=== PATIENT | female | born 1955 | race Caucasian/White ===

== ENCOUNTER → 2017-04-26 | Day surgery (SDC) | payer MEDICARE, MEDICAID ==
[~2017-04-26] VITALS: Ht 162.6 cm; Wt 81.6 kg
[~2017-04-26] MED LIST: BUSPIRONE HCL10 MG PO; CARVEDILOL6.25 MG PO; CYMBALTA30 MG PO; DICLOFENAC 50MG50 MG PO; LISINOPRIL40 MG PO; METOPROLOL SUCC25 M2 PO; NORVASC 10MG. T10 MG PO; OMEPRAZOLE20 MG PO; PERCOCET 325 MG1 TA4 PO; PERCOCET 5/3251 EACH PO; PERCOCET1 TAB PO; PRAVACHOL20 MG PO; ZANAFLEX4 M3 PO
[2017-04-26 13:01] VITALS: BP 189/97
[2017-04-26 13:24] VITALS: BP 189/97
[2017-04-26 13:25] VITALS: BP 156/85
[2017-04-26 13:36] VITALS: BP 151/83
--- NOTE | 2017-04-26 13:37 | Procedure Note ---
Procedure detail Date of procedure: 04/26/17 Anesthesiologist: Tyrone Bagley Complications: None Pre-procedure diagnosis: Degenerative disease cervical spine multiple levels cervical radiculopathy symptoms. Cervical postlaminectomy syndrome. Cervical facet arthropathy multiple level. Post-procedure diagnosis: Same Indications for procedure: Very pleasant 62-year-old white female has had extensive posterior cervical fusion in the past. She has extreme point tenderness on the LEFT side of her cervical spine. Pain intensifies with LEFT rotation. Flexion and/or extension. She presents to our clinic today for cervical medial branch block C5-6, C6-7, C7 -T1 on the LEFT. Procedure detail: Informed consent was obtained and the risk and benefits of the procedure was explained to the patient. Patient was taken to the procedure room where noninvasive monitors were placed, including noninvasive blood pressure cuff as well as pulse oximeter. The area over the lumbar spine was cleansed using chlorhexidine as a cleansing solution. I anesthetized the skin and subcutaneous tissues with 1% Lidocaine. I placed 22-gauge spinal needles into the facet joint / medial branches of RIGHT cervical C5-6, C6-7, C7-T1. Needle placement was confirmed with fluoroscopy. After confirmation of needle placement, each site was injected with 1 mL of 1% lidocaine and 0.25 % Marcaine and 10 mg of Depo- Medrol. A total of 80 mg of depo medrol was used for bilateral medial branch blocks of cervical RIGHT C5-6, C6-7, C7-T1. Patient tolerated the procedure without difficulty. There were no complications. Plan and disposition: Patient has rebounded 10 minutes post procedure. She reports 50 percent improvement terms of her LEFT cervical spine. She'll return to see us in the pain clinic for further evaluation. at [id number]
== END ==
LOC: PM 12:39
PROC: 3E0T3BZ Introduction of Anesthetic Agent into Peripheral Nerves and Plexi, Percutaneous Approach (ICD-10-PCS; principal; 2017-04-26)
PROC: 3E0T33Z Introduction of Anti-inflammatory into Peripheral Nerves and Plexi, Percutaneous Approach (ICD-10-PCS; 2017-04-26)
PROC: BR141ZZ Fluoroscopy of Cervical Facet Joint(s) using Low Osmolar Contrast (ICD-10-PCS; 2017-04-26)
DX: M54.02 Panniculitis affecting regions of neck and back, cervical region (principal); M50.10 Cervical disc disorder with radiculopathy, unspecified cervical region; M96.1 Postlaminectomy syndrome, not elsewhere classified
CPT/HCPCS: J1040; Q9966